=== PATIENT | male | born 1975 | race Caucasian/White ===

== ENCOUNTER 2016-09-30 11:54 | Emergency (ER) | payer SELFPAY ==
[~2016-09-30] VITALS: Ht 188 cm; Wt 91.7 kg
[~2016-09-30 11:54] MED LIST: PERC10TA27 PO; PRED50 PO; ROBA500T PO
[2016-09-30 11:58] VITALS: BP 116/75; PULSE 89; RESP 16; TEMP 97.8; O2SAT 96
[2016-09-30] MEDS ORDERED: IBUP-988 PO (12:09)
[2016-09-30] MEDS ORDERED: ROBA750T PO (12:37)
[2016-09-30] MEDS ORDERED: DICL50TA3 PO (12:37)
[2016-09-30] MEDS ORDERED: KETOROLAC TROMETHAMINE 60 MG/2 ML (IM) VIAL IM ONE (12:45)
[2016-09-30] MEDS ORDERED: ACETAMINOPHEN/HYDROcodone 325 MG/7.5 MG TAB PO ONE (12:45)
[2016-09-30] MEDS ORDERED: ORPHENADRINE INJ 60 MG/2 ML AMP IM ONE (12:45)
--- NOTE | 2016-09-30 12:47 | PD ---
HPI Chief Complaint: Back/ Neck Pain or Injury Time Seen by Provider: 12:25 Travel History International Travel<30 days: No Contact w/Intl Traveler<30days: No Traveled to known affect area: No History of Present Illness HPI Patient 41-year-old male with right lower back pain. He states yesterday he was getting out of his truck when he felt a popping sensation in the right lower back. He's had discomfort since that time which acutely worsened upon waking this morning. Pain is aching in nature but becomes sharp with movements. It radiates to the left side of the back sometimes as well but patient believes that is due to his impaired gait due to pain. No radiation into the buttocks or legs. He denies any bowel or bladder, saddle anesthesia, a paresthesias in his legs. Denies fever, history of trauma, back surgery or IVDA. He is use aspirin last evening with minimal relief. No attempts at palliation today. No positions of comfort. Worse with movement and touch. PFSH Past Medical History Medical History: Denies Significant Hx Diminished Hearing: No Musculoskeletal: Yes (right leg/knee chronic interm pain) Immunizations Current: Yes Tetanus Vaccination: < 5 Years Influenza Vaccination: No Past Surgical History Other Surgery: Yes (left elbow dislocation r/t injury) Social History Alcohol Use: No (denies) Tobacco Use: No (quit 08/2016) Substance Use: No Allergies-Medications (Allergen,Severity, Reaction): Coded Allergies: No Known Allergies (Verified , 09/30/16) Reported Meds & Prescriptions Reported Meds & Active Scripts Active Robaxin (Methocarbamol) 750 Mg Tab 750 Mg PO QID PRN 2 tabs QID for 2 days, then 1 tab QID thereafter Diclofenac Sodium DR (Diclofenac Sodium) 50 Mg Tabdr 50 Mg PO BID Reported Advil (Ibuprofen) 200 Mg Tab 400 Mg PO ONCE Review of Systems General / Constitutional: No: Fever Musculoskeletal: Positive: Other (see the history of present illness) Neurologic: No: Weakness, Focal Abnormalities, Paresthesia, Sensory Disturbance Physical Exam Narrative GENERAL: Well-developed and well-nourished adult male in no acute distress. SKIN: Warm and dry. Good turgor without tenting. HEAD: Normocephalic and atraumatic. EYES: PERRL bilaterally, 5mm. EOMI bilaterally. No injection or icterus present. No proptosis. Lids without edema or erythema. NECK: Supple, no midline tenderness, crepitus or step-offs. Trachea midline, no JVD. No cervical or facial lymphadenopathy. CARDIOVASCULAR: Regular rate and rhythm without murmurs, rubs, clicks or gallops. Dorsalis pedis and posterior tibial pulses 2+ bilaterally. No pedal edema. RESPIRATORY: Clear to auscultation bilaterally with symmetrical rise and fall, no distress or use of accessory muscles. GASTROINTESTINAL: Non-tender, non-distended. Normal bowel sounds all 4 quadrants. No masses or organomegaly present. MUSCULOSKELETAL: Antalgic gait. Exam of the patient's back and upper buttocks reveals no edema or discoloration. There is tenderness with palpation of the right parasacral spinous musculature and slightly on the left as well. The lumbar sacral midline tenderness, crepitus or step-offs. Reduced range of motion in back extension secondary to pain. Negative right straight leg raise. Extremities without clubbing, cyanosis, or edema. No obvious deformities. NEUROLOGIC: CN II-XII grossly intact. Awake and alert. Sensation intact L1-S2 bilaterally. Strength 5/5 in hip flexion, hip extension, knee flexion, knee extension, plantar flexion, dorsiflexion, and great toe flexion and extension bilaterally. Bilateral patellar and Achilles DTRs 2+. Downgoing Babinskis bilaterally. Normal speech. PSYCHIATRIC: Appropriate mood and affect; insight and judgment normal. Data Data Last Documented VS Vital Signs Date Time Temp Pulse Resp B/P Pulse Ox O2 Delivery O2 Flow Rate FiO2 09/30/16 11:58 97.8 89 16 116/75 96 Orders Ketorolac Inj (Toradol Inj) (09/30/16 12:45) Orphenadrine Inj (Norflex Inj) (09/30/16 12:45) Acetamin-Hydrocod 325-7.5 Mg ([place] 7.5 (09/30/16 12:45) MDM Medical Decision Making Medical Screen Exam Complete: Yes Emergency Medical Condition: Yes Differential Diagnosis Low back strain versus muscle spasm versus HNP versus sciatica versus SI dysfunction Narrative Course Patient is a 41-year-old male with a history and physical consistent with low back strain and muscle spasm. He has no "red flag "symptoms and is neurovascularly intact on exam. He is given Toradol and Norflex here as well as Lortab. Given prescription for diclofenac and Robaxin and recommend homecare measures.See discharge paperwork for further instructions. The plan was discussed with the patient who acknowledged their understanding and agreement. Reinforced the follow-up with primary care is critically important. Patient instructed on emergent conditions that should prompt return to ED. Diagnosis Primary Impression: Low back strain Qualified Code: S39.012A - Low back strain, initial encounter Patient Instructions: General Instructions, Low Back Strain (ED), Lower Back Exercises (ED), Narcotic given in the ED Departure Forms: Tests/Procedures, Work Release Enter return to work date: Oct 03, 2016 Additional Instructions: Rest for 24 hours, then gradually resume normal activity Avoid maneuvers or positions that aggravate the pain Avoid twisting/bending or lifting heavy items Take medications as prescribed Warm, moist heat applied to painful areas hourly as needed Try to massage and stretch affected muscles after applying heat to speed recovery Follow-up with PCP in 1-2 days Return to ED for any acute worsening of symptoms Med/Other Pt SpecificInfo: Prescription(s) given Scripts Methocarbamol (Robaxin)750 Mg [id number] Mg PO QID PRN (MUSCLE SPASM) #40 TAB 2 tabs QID for 2 days, then 1 tab QID thereafter Prov:Iris Dee MD 09/30/[address] 50 Mg Tabdr50 Mg PO BID #14 TAB Prov:Iris Dee MD 09/30/16 Disposition: 01 DISCHARGE HOME Condition: Stable Quirino Liu III Sep 30, 2016 12:47
[2016-09-30 13:33] VITALS: RESP 16
== END 2016-09-30 13:34 | disposition home or self-care (01) ==
LOC: PHEFT 11:54
DX: S39.012A Strain of muscle, fascia and tendon of lower back, initial encounter (principal); X50.9XXA Other and unspecified overexertion or strenuous movements or postures, initial encounter; Y93.89 Activity, other specified; Y92.9 Unspecified place or not applicable
CPT/HCPCS: 96372; 99283; J1885; J2360

== ENCOUNTER 2016-10-07 21:18 | Emergency (ER) | payer SELFPAY ==
[~2016-10-07] VITALS: Ht 188 cm; Wt 91.1 kg
[~2016-10-07 21:18] MED LIST changes: +DICL50TA3 PO; +IBUP-988 PO; -PERC10TA27 PO; -PRED50 PO; -ROBA500T PO; +ROBA750T PO
[2016-10-07 21:28] VITALS: BP 139/106; PULSE 77; RESP 20; TEMP 98; O2SAT 96
[2016-10-07] MEDS ORDERED: SODIUM CHLOR 0.9% 1000 ML INJ 1,000 ML IV ONE (22:17)
--- NOTE | 2016-10-07 22:22 | PD ---
HPI Chief Complaint: Flank/Kidney Pain Time Seen by Provider: 22:12 Travel History International Travel<30 days: No Contact w/Intl Traveler<30days: No Traveled to known affect area: No History of Present Illness HPI 41-year-old male presents to the emergency department for complaint of right flank pain radiating into the right groin. Patient had episode of nausea with vomiting earlier today. No prior history of injury or kidney stones. Patient denies any lower extremity numbness tingling or weakness no bladder or bowel dysfunction or saddle anesthesia. Patient reports she was seen approximately 5 days ago in the emergency department for same complaint at which time he was prescribed a muscle relaxant and nonsteroidal anti-inflammatory medication which patient states symptoms have not improved. Patient denies any chronic issues or previous back injury. No chronic medications or chronic illnesses per patient. Pain is reported as 10 over 10 in intensity. PFSH Past Medical History Narrative Medical Musculoskeletal complaints of dislocation nursing notes reviewed no tobacco use Medical History: Denies Significant Hx Diminished Hearing: No Musculoskeletal: Yes (right leg/knee chronic interm pain) Immunizations Current: Yes Tetanus Vaccination: > 5 Years Influenza Vaccination: No Past Surgical History Surgical History: No Previous Surgery Other Surgery: Yes (left elbow dislocation r/t injury) Social History Alcohol Use: No Tobacco Use: No Substance Use: No Allergies-Medications (Allergen,Severity, Reaction): Coded Allergies: No Known Allergies (Verified , 10/07/16) Reported Meds & Prescriptions Reported Meds & Active Scripts Active Prednisone 50 Mg Tab 50 Mg PO DAILY 4 Days Percocet (Oxycodone-Acetaminophen) 5-325 mg Tab 1 Tab PO Q6H PRN Review of Systems Except as stated in HPI: all other systems reviewed are Neg General / Constitutional: No: Fever HENT: No: Congestion Cardiovascular: No: Chest Pain or Discomfort Respiratory: No: Shortness of Breath Gastrointestinal: Positive: Nausea, Vomiting (x1), No: Abdominal Pain Genitourinary: Positive: Flank Pain, No: Dysuria, Hematuria Musculoskeletal: Positive: Myalgias, Arthralgias, Limited ROM, Pain, No: Weakness, Cramping, Edema Skin: No Rash Neurologic: No: Weakness, Paresthesia, Incontinence Psychiatric: No: Anxiety Hematologic/Lymphatic: No: Lymph Node Enlargement Physical Exam Narrative GENERAL: Well-developed well-nourished male in obvious discomfort SKIN: Warm and dry. HEAD: Normocephalic. EYES: No scleral icterus. No injection or drainage. NECK: Supple, trachea midline. No JVD or lymphadenopathy. CARDIOVASCULAR: Regular rate and rhythm without murmurs, gallops, or rubs. RESPIRATORY: Breath sounds equal bilaterally. No accessory muscle use. GASTROINTESTINAL: Abdomen soft, non-tender, nondistended. MUSCULOSKELETAL: No cyanosis, or edema. Negative straight leg raising; sensory and motor exam intact; DTRs 2+ and equal; no clonus BACK: Nontender without obvious deformity. Right-sided CVA tenderness. Data Data Last Documented VS Vital Signs Date Time Temp Pulse Resp B/P Pulse Ox O2 Delivery O2 Flow Rate FiO2 10/07/16 23:07 18 10/07/16 22:55 62 116/73 97 Room Air 10/07/16 21:28 98.0 Orders Complete Blood Count With Diff (10/07/16 22:17) Basic Metabolic Panel (Bmp) (10/07/16 22:17) Urinalysis - C+S If Indicated (10/07/16 22:17) Ct Abd/Pel W/O Iv Contrast (10/07/16 22:17) Ecg Monitoring (10/07/16 22:17) Iv Access Insert/Monitor (10/07/16 22:17) Ketorolac Inj (Toradol Inj) (10/07/16 22:30) Ondansetron Inj (Zofran Inj) (10/07/16 22:30) Sodium Chloride 0.9% Flush (Ns Flush) (10/07/16 22:30) Sodium Chlor 0.9% 1000 Ml Inj (Ns 1000 M (10/07/16 22:17) Morphine Inj (Morphine Inj) (10/07/16 22:30) Hydromorphone Pf Inj (Dilaudid Pf Inj) (10/07/16 23:30) Prednisone (Deltasone) (10/07/16 23:30) Labs Laboratory Tests Test 10/07/16 10/07/16 21:45 23:05 White Blood Count 11.7 TH/MM3 Red Blood Count 5.75 MIL/MM3 Hemoglobin 17.4 GM/DL Hematocrit 51.7 % Mean Corpuscular Volume 89.9 FL Mean Corpuscular Hemoglobin 30.3 PG Mean Corpuscular Hemoglobin 33.7 % Concent Red Cell Distribution Width 12.2 % Platelet Count 341 TH/MM3 Mean Platelet Volume 8.5 FL Neutrophils (%) (Auto) 56.6 % Lymphocytes (%) (Auto) 33.3 % Monocytes (%) (Auto) 6.6 % Eosinophils (%) (Auto) 2.4 % Basophils (%) (Auto) 1.1 % Neutrophils # (Auto) 6.6 TH/MM3 Lymphocytes # (Auto) 3.9 TH/MM3 Monocytes # (Auto) 0.8 TH/MM3 Eosinophils # (Auto) 0.3 TH/MM3 Basophils # (Auto) 0.1 TH/MM3 CBC Comment DIFF FINAL Differential Comment Sodium Level 141 MEQ/L Potassium Level 3.8 MEQ/L Chloride Level 106 MEQ/L Carbon Dioxide Level 26.5 MEQ/L Anion Gap 9 MEQ/L Blood Urea Nitrogen 16 MG/DL Creatinine 1.10 MG/DL Estimat Glomerular Filtration 75 ML/MIN Rate Random Glucose 101 MG/DL Calcium Level 8.8 MG/DL Urine Color YELLOW Urine Turbidity CLEAR Urine pH 6.5 Urine Specific [place] 1.014 Urine Protein NEG mg/dL Urine Glucose (UA) NEG mg/dL Urine Ketones NEG mg/dL Urine Occult Blood NEG Urine Nitrite NEG Urine Bilirubin NEG Urine Leukocyte Esterase NEG Urine RBC 0-2 /hpf Urine WBC 0-2 /hpf Urine Squamous Epithelial 0-5 /hpf Cells Urine Bacteria NONE /hpf Microscopic Urinalysis Comment CULT NOT INDICATED MDM Medical Decision Making Medical Screen Exam Complete: Yes Emergency Medical Condition: Yes Medical Record Reviewed: Yes Interpretation(s) cbc: grossly wnl metabolic panel: grossly wnl ua: wnl Last Impressions Abdomen/Pelvis CT 10/07/167 Signed Impressions: Service Date/Time: September 22:36 - CONCLUSION: Mildly enlarged liver, nonspecific. Otherwise normal noncontrast CT of the abdomen and pelvis. No renal or ureteral calculus or evidence of obstructive uropathy. Quirino Barahona MD Differential Diagnosis Renal colic pyelonephritis sacroiliitis sciatica; no exam findings for cauda equina or testicular torsion Narrative Course IV access obtained specimens collected and sent for resulting CT kidney stone protocol ordered along with administration of normal saline Zofran Toradol and morphine Diagnosis Primary Impression: Lumbar disc disease with radiculopathy Additional Impression: Medication refill Referrals: Primary Care Physician call for appointment Patient Instructions: Narcotic given in the ED Departure Forms: Tests/Procedures, Work Release Additional Instructions: apply moist heat take medications as prescribed; do not take non-steroidal anti-inflammatory medications while taking prednisone no work x 2 days rest on firm surface return to the ED as needed or for any concerns continue muscle relaxant as prescribed Med/Other Pt SpecificInfo: Prescription(s) given, Med Stopped (diclofenac) Scripts Methocarbamol (Robaxin)750 Mg [id number] Mg PO Q6HR #12 TAB Ref 0 Prov:Andreea Harrell MD 10/08/16 Prednisone 50 Mg Tab50 Mg PO DAILY 4 Days Ref 0 Prov:Andreea Harrell MD 10/07/16 Oxycodone-Acetaminophen (Percocet)5-325 mg Tab1 Tab PO Q6H PRN (PAIN) #12 TAB Ref 0 Prov:Andreea Harrell MD 10/07/16 Disposition: 01 DISCHARGE HOME Condition: Stable Andreea Harrell MD Oct 07, 2016 22:22
[2016-10-07] MEDS ORDERED: MORPHINE SULFATE 4 MG/ML INJ IV PUSH ONE (22:30)
[2016-10-07] MEDS ORDERED: KETOROLAC TROMETHAMINE 30 MG/ML (IVP) VIAL IVP ONE (22:30)
[2016-10-07] MEDS ORDERED: ONDANSETRON HCL 4 MG/2 ML VIAL IVP ONE (22:30)
[2016-10-07] MEDS ORDERED: SODIUM CHLORIDE 0.9% FLUSH 5 ML FLUSH IVF PRN (22:30)
[2016-10-07 22:34] LABS: AUTOMATED NEUTROPHIL # 6.6 TH/MM3 (1.8-7.7); BASOPHIL # 0.1 TH/MM3 (0-0.2); BASOPHIL % 1.1 % (0.0-2.0); EOSINOPHIL # 0.3 TH/MM3 (0-0.4); EOSINOPHIL % 2.4 % (0.0-4.0); HEMATOCRIT 51.7 % (39.0-51.0); HEMO FLAGS DIFF FINAL; LYMPH % 33.3 % (9.0-44.0); LYMPHOCYTE # 3.9 TH/MM3 (1.0-4.8); MEAN CELL VOLUME 89.9 FL (80.0-100.0); MEAN CORPUSCULAR HEMOGLOBIN 30.3 PG (27.0-34.0); MEAN CORPUSCULAR HGB CONC 33.7 % (32.0-36.0); MONO % 6.6 % (0.0-8.0); NEUT % 56.6 % (16.0-70.0); PLATELET COUNT 341 TH/MM3 (150-450); RED BLOOD COUNT 5.75 MIL/MM3 (4.50-5.90); RED CELL DISTRIBUTION WIDTH 12.2 % (11.6-17.2); WHITE BLOOD COUNT 11.7 TH/MM3 (4.0-11.0)
[2016-10-07 22:43] LABS: POTASSIUM 3.8 MEQ/L (3.5-5.1)
[2016-10-07 22:46] LABS: BICARBONATE 26.5 MEQ/L (21.0-32.0)
[2016-10-07 22:55] VITALS: BP 116/73; PULSE 62; RESP 18; O2SAT 97
--- NOTE | 2016-10-07 23:02 | RADHPO ---
EXAM DATE/TIME: 10/07/2016 22:36 [facility] COMPARISON: No previous studies available for comparison. INDICATIONS : Right flank pain. ORAL CONTRAST: No oral contrast ingested. RADIATION DOSE: 16.87 CTDIvol (mGy) MEDICAL HISTORY : None SURGICAL HISTORY : None. ENCOUNTER: Initial ACUITY: 1 week PAIN SCALE: 10/10 LOCATION: Right flank TECHNIQUE: Volumetric scanning of the abdomen and pelvis was performed. Using automated exposure control and ad justment of the mA and/or kV according to patient size, radiation dose was kept as low as reasonably achievable to obtain optimal diagnostic quality images. FINDINGS: LOWER LUNGS: The visualized lower lungs are clear. LIVER: The liver is mildly enlarged, approximately 19.3 cm craniocaudal. No focal hepatic lesion. CT appeara nce of the gallbladder is within normal limits. SPLEEN: Normal size without lesion. PANCREAS: Within normal limits. KIDNEYS: Normal in size and shape. There is no mass, stone, or hydronephrosis. ADRENAL GLANDS: Within normal limits. VASCULAR: There is no aortic aneurysm. BOWEL/MESENTERY: The stomach, small bowel, and colon demonstrate no acute abnormality. There is no free intraperitone al air or fluid. The appendix is well-visualized and appears normal. ABDOMINAL WALL: Within normal limits. RETROPERITONEUM: There is no lymphadenopathy. BLADDER: No wall thickening or mass. REPRODUCTIVE: Within normal limits. INGUINAL: There is no lymphadenopathy or hernia. MUSCULOSKELETAL: Within normal limits for patient age. CONCLUSION: Mildly enlarged liver, nonspecific. Otherwise normal noncontrast CT of the abdomen and pelvis. No mague al or ureteral calculus or evidence of obstructive uropathy. Quirino Barahona MD on October 07, 2016 at 22:59 Board Certified Radiologist. This report was verified electronically.
[2016-10-07 23:07] VITALS: RESP 18
[2016-10-07 23:19] LABS: BLOOD, URINE NEG (NEG); GLUCOSE,URINE NEG (NEG); KETONE, URINE NEG (NEG); NITRITE,URINE NEG (NEG); PH, URINE 6.5 (5.0-8.5)
[2016-10-07] MEDS ORDERED: PRED50 PO (23:24)
[2016-10-07] MEDS ORDERED: PERC5TAB12 PO (23:24)
[2016-10-07 23:25] LABS: RBC, URINE 0-2 /hpf (0-3); SQUAMOUS EPITHELIAL CELL URINE 0-5 /hpf (0-5); URINE COLOR YELLOW (YELLW/STRAW); WBC, URINE 0-2 /hpf (0-5)
[2016-10-07 23:26] LABS: COMMENT (UR) CULT NOT INDICATED; CULTURE IF INDICATED CULT NOT INDICATED
[2016-10-07] MEDS ORDERED: predniSONE 50 MG TAB PO ONE (23:30)
[2016-10-07] MEDS ORDERED: HYDROmorphone HCL PF 1 MG/ML VIAL IV PUSH ONE (23:30)
[2016-10-08] MEDS ORDERED: ROBA750T PO
== END 2016-10-08 00:16 | disposition home or self-care (01) ==
LOC: PHED 21:18
DX: M51.9 Unspecified thoracic, thoracolumbar and lumbosacral intervertebral disc disorder (principal); M54.16 Radiculopathy, lumbar region; Z76.0 Encounter for issue of repeat prescription; R11.2 Nausea with vomiting, unspecified
CPT/HCPCS: 74176; 80048; 81001; 85025; 96374; 96375; 99284; J1170; J1885; J2270; J2405; J7030; J7512

== ENCOUNTER 2018-02-18 17:01 | Emergency (ER) | payer BC ==
[~2018-02-18 17:01] MED LIST changes: -DICL50TA3 PO; -IBUP-988 PO; +PERC5TAB12 PO; +PRED50 PO
[2018-02-18 17:03] VITALS: BP 156/84; PULSE 88; RESP 20; TEMP 97.8; O2SAT 97
[2018-02-18] MEDS ORDERED: AMOX250C3 PO (17:14)
[2018-02-18] MEDS ORDERED: DICL75TA PO (17:14)
[2018-02-18] MEDS ORDERED: CLIN300C5 PO (17:19)
[2018-02-18] MEDS ORDERED: MAGICPED SWISH-SPIT (17:19)
--- NOTE | 2018-02-18 17:26 | PD ---
HPI Chief Complaint: Oral / Dental Pain or Problem Time Seen by Provider: 17:13 Travel History International Travel<30 days: No Contact w/Intl Traveler<30days: No Traveled to known affect area: No History of Present Illness HPI 42-year-old male presents emergency department for evaluation of tooth pain and left facial swelling that started Tuesday. Says that he went to the dentist and he removed the 'wrong tooth'. Says over the next 1-2 days, he developed increased pain and swelling so he returned to the dentist and was given PCN and Percocet for the pain. He states compliance with the medications. He is due to return Tuesday to see the dentist. He says that initially, his pain was located directly over the pulled tooth but this has worsened and he noticed increased swelling that has since extended into his left cheek and lip. He is concerned about a worsening infection. His pain is moderate in severity and radiates to the left orbit. Described as aching. Denies fevers or chills but says he has been sweating. Denies neck pain, drooling, or swelling. PFSH Past Medical History Diminished Hearing: No Musculoskeletal: Yes (right leg/knee chronic interm pain) Immunizations Current: Yes Past Surgical History Other Surgery: Yes (left elbow dislocation r/t injury) Social History Alcohol Use: No Tobacco Use: Yes (1PPD) Substance Use: No Allergies-Medications (Allergen,Severity, Reaction): Coded Allergies: No Known Allergies (Verified , 10/07/16) Reported Meds & Prescriptions Reported Meds & Active Scripts Active Magic Mouthwash Pediatric/Adult Liq (Lidocaine/Diphenhydr/Alum/Mg/Simeth) 60 Ml Susp 5 Ml SWISH-SPIT ACHS Each 5mL contains: Diphenydramine 4.5mg, Viscous Lidocaine 2% 10mg, Maalox Advanced Regular Strength 2.7ml Clindamycin (Clindamycin HCl) 300 Mg Cap 300 Mg PO Q6H 7 Days Percocet (Oxycodone-Acetaminophen) 5-325 mg Tab 1 Tab PO Q6H PRN Reported Diclofenac Sodium DR (Diclofenac Sodium) 75 Mg Tabdr 75 Mg PO BID Amoxicillin 250 Mg Cap 250 Mg PO TID Review of Systems Except as stated in HPI: all other systems reviewed are Neg Physical Exam Narrative GENERAL: Well-nourished, well-developed patient, in NAD SKIN: Focused skin assessment warm/dry. No rashes or lesions. mild edema compared to right cheek. mild TTP to maxillary cheek. no TTP to jawline. no fluctuance of gumline. HEAD: Normocephalic. Atraumatic. EYES: No scleral icterus. No injection or drainage. PERRLA, EOMI THROAT: No pharyngeal injection, exudates, or tonsillar hypertrophy. Airway is patent. NECK: Supple, trachea midline. No JVD or lymphadenopathy. No meningismus. CARDIOVASCULAR: Regular rate and rhythm without murmurs, gallops, or rubs. RESPIRATORY: Breath sounds equal bilaterally. No accessory muscle use. No wheezes, rales, or rhonchi MUSCULOSKELETAL: No cyanosis, or edema. BACK: Nontender without obvious deformity. No CVA tenderness. Data Data Last Documented VS Vital Signs Date Time Temp Pulse Resp B/P (MAP) Pulse Ox O2 Delivery O2 Flow Rate FiO2 02/18/18 17:03 97.8 88 20 156/84 (108) 97 Orders Orders Clindamycin Inj (Cleocin Inj) (02/18/18 17:30) Acetamin-Hydrocod 325-10 Mg ([place] 10-32 (02/18/18 17:30) MDM Medical Decision Making Medical Screen Exam Complete: Yes Emergency Medical Condition: Yes Differential Diagnosis Dental infection, tooth abscess, pulpitis, dry socket Narrative Course 42-year-old male presents emergency department for evaluation of tooth pain and left facial swelling that started Tuesday. Says that he went to the dentist and he removed the 'wrong tooth'. Says over the next 1-2 days, he developed increased pain and swelling so he returned to the dentist and was given PCN and Percocet for the pain. He states compliance with the medications. He is due to return Tuesday to see the dentist. He says that initially, his pain was located directly over the pulled tooth but this has worsened and he noticed increased swelling that has since extended into his left cheek and lip. He is concerned about a worsening infection. His pain is moderate in severity and radiates to the left orbit. Described as aching. Denies fevers or chills but says he has been sweating. Vital signs are stable. Physical exam findings consistent with developing cellulitis of the left face. I suspect the patient also has a dry socket. Patient smokes which likely contributed to his condition. Note the patient had been taking amoxicillin and percocet for pain without improvement. Pt has a history of rheumatoid arthritis so there is a concern for his immune status. Clindamycin 600mg IM and Percocet 10-325mg administered in the ED. He will be discharged with clindamycin and magic mouthwash. He should follow up with his dentist as planned for Tuesday. Diagnosis Primary Impression: Dental infection Referrals: Dentist Primary Care Physician Patient Instructions: Cavity Preventive (For the teeth or gums), Dental Abscess (ED), General Instructions Departure Forms: Tests/Procedures, Work Release Enter return to work date: Feb 21, 2018 Additional Instructions: Stop the amoxicillin. Start clindamycin tomorrow. You received your first dose today. Use the Magic mouthwash for symptom relief. Follow-up with a dentist as discussed next Tuesday. I highly recommend you stop smoking to reduce complications associated with your condition. Scripts Tkfrbwyfvtoamii-Cilumbyhb-Rlv-Alum-Simeth Liq (Magic Mouthwash Pediatric/Adult Liq) 60 Ml Susp 5 ML SWISH-SPIT ACHS for Mouth sores, #60 ML 0 Refills Each 5mL contains: Diphenydramine 4.5mg, Viscous Lidocaine 2% 10mg, Maalox Advanced Regular Strength 2.7ml Prov: Leland Wright MD 02/18/18 Clindamycin (Clindamycin) 300 Mg Cap 300 MG PO Q6H for Infection for 7 Days, #28 CAP 0 Refills Prov: Leland Wright MD 02/18/18 Disposition: 01 DISCHARGE HOME Condition: Stable Marii Daily Feb 18, 2018 17:26
[2018-02-18] MEDS ORDERED: CLINDAMYCIN PHOS 600 MG/4 ML VIAL IM ONE (17:30)
[2018-02-18] MEDS ORDERED: ACETAMINOPHEN/HYDROcodone 325 MG/10 MG TAB PO ONE (17:30)
== END 2018-02-18 18:06 | disposition home or self-care (01) ==
LOC: PHEFT 17:01
DX: K04.7 Periapical abscess without sinus (principal); F17.200 Nicotine dependence, unspecified, uncomplicated; M06.9 Rheumatoid arthritis, unspecified
CPT/HCPCS: 96372

== ENCOUNTER 2018-07-05 05:09 | Inpatient (IN) ==
[2018-07-05] MEDS ORDERED: Bupivacaine Liposomal PF 1.3% Inj 20 ML Vial ONE (05:15)
[2018-07-05] MEDS ORDERED: Metoprolol Tartrate 25 MG Tablet PO ONE (05:30)
[2018-07-05] MEDS ORDERED: Chlorhexidine Gluconate 2% 1 Pack (2 Cloths) TOPICAL ONE (05:30)
[2018-07-05] MEDS ORDERED: Chlorhexidine 4% Topical 120 APPLIC/120 ML Bottle TOPICAL SCH (05:30)
[2018-07-05] MEDS ORDERED: Vancomycin Inj 1,000 MG in Sodium Chlor 0.9% Inj 250 ML IV.SIG SCH (06:00)
[2018-07-05] MEDS ORDERED: ceFAZolin 2 GM Premix Inj 2 GM/50 ML PIGGYBACK IV.SIG SCH (06:00)
[2018-07-05] MEDS ORDERED: Sodium Chlor 0.9% Inj 500 ML IV.SIG SCH (06:00)
[2018-07-05] MEDS ORDERED: Dexamethasone Inj 20 MG/5 ML Vial IV.PUSH SCH (06:00)
[2018-07-05] MEDS ORDERED: Neostigmine Inj 5 MG/5 ML Syringe IV.PUSH ONE (06:39)
[2018-07-05] MEDS ORDERED: Normosol-R pH 7.4 Inj 1,000 ML IV.CONT ONE (06:39)
[2018-07-05] MEDS ORDERED: Lidocaine PF 1% Inj 5 ML Syringe OTHER ONE (06:39)
[2018-07-05] MEDS ORDERED: Glycopyrrolate Inj 1 MG/5 ML Syringe IV.PUSH ONE (06:39)
[2018-07-05] MEDS ORDERED: Sodium Chlor 0.9% Inj 40 ML, Bupivacaine Liposo PF 1.3% Inj 20 ML P-ARTICULR SCH ×2 (07:00)
[2018-07-05] MEDS ORDERED: Tranexamic Acid Inj 1,000 MG in Sodium Chlor 0.9% Inj 100 ML IV.SIG SCH (07:00)
--- NOTE | 2018-07-05 07:15 | P.DCO ---
- Physical Therapy Physical Therapy: Gait training, Transfer training, bed to chair Hip: Total hip Right Lower Extremity Weight Bearing: Weight bearing as tolerated Right Lower Extremity Range of Motion: Active ROM - Nursing Nursing: Fang emjia Dressing changes: Do not change dressing Additional instructions: First dressing change in the office - Certification Need for Home Health services: I have seen patient Quirino Last JR on 07/05/18. My clinical findings support the need for the requested home health care services because: Need for Home Health Services: Limited ability to care for self, High risk of falls Homebound Certification: I certify that my clinical findings support that this patient is homebound because: Homebound Certification: Post-op weakness, Unsteady gait/balance
[2018-07-05] MEDS ORDERED: Bisacodyl 10 MG Supp RECTAL PRN (08:47)
[2018-07-05] MEDS ORDERED: Zolpidem Tartrate 5 MG Tablet PO PRN (08:47)
[2018-07-05] MEDS ORDERED: Aluminum/Magnesium/Simethacone Susp 30 ML UDC PO PRN (08:47)
[2018-07-05] MEDS ORDERED: Post-op Orders (for Pharmacy) OTHER STA (08:47)
--- NOTE | 2018-07-05 08:51 | P.OP ---
- Preoperative Diagnosis (1) Osteoarthritis of right hip - Postoperative Diagnosis (1) Osteoarthritis of right hip Date of procedure: 07/05/18 Procedure: Right total hip arthroplasty Anesthesia: GETA Surgeon: Omid Jeffery MD Silk Screen Frame Assembler: KIM Estrada The surgical procedure was assisted by my Advanced Registered Nurse Practitioner. My RESTAURANT HOURLY MANAGER presence was necessary throughout this case for the manipulation and positioning of the surgical extremity. My RESTAURANT HOURLY MANAGER was assisting me throughout the duration of this procedure. The skill set of an Advance Registered Nurse Practitioner was medically necessary to complete this procedure. During the surgical case, the surgical consultant was working at the back table and the Advance Registered Nurse Practitioner was directly assisting me. Operation and Findings: IMPLANT DESCRIPTION: 1. [place] Gription Cup, acetabular size 58. 2. [place] AltrX polyethylene, neutral. 4. [place]ail femoral stem size 16, with collar, standard offset. 5. Femoral head/neck ceramic, 36, +8.5. ESTIMATED BLOOD LOSS: 250 cc. JUSTIFICATION FOR PROCEDURE: The patient has end-stage osteoarthritis to the hip. There is an attached conservative measures pathway form in the chart that describes the nonoperative measures that were undertaken prior to consideration of surgical management. The patient understood the risks and benefits of surgical management. See my office notes for further details. PROCEDURE: The patient was brought back to the operative theatre. Adequate anesthesia was obtained. The patient received intravenous vancomycin and Ancef. The patient was carefully placed on the operative table. The lower extremity was prepped and draped in the usual sterile fashion. Fluoroscopic images were obtained. We made a standard anterior incision over the hip. We dissected through the TFL fascia, exposing the anterior capsule. Arthrotomy was performed in a T-shaped fashion. The capsule was tagged with a #2 FiberWire. End-stage arthritis was identified. Osteotomy was performed through the femoral neck exposing the acetabulum. Remnants of the labrum were resected and osteophytes were removed. We sequentially reamed the acetabulum. We trialed the hip and placed the final cup into position. This was done under fluoroscopic guidance to obtain the appropriate inclination and anteversion. A manhole cover was placed into the acetabular component. We then placed the final polyethylene into position and confirmed that it was well seated. Capsular attachments on the calcar and the inner aspect of the greater trochanter were resected. On the proximal aspect of the femur we used a rongeur , box osteotome, canal finder, sequential broaches and lateralizing rasp. We calcar planed the proximal femur. Then thoroughly irrigated the wound. We trialed the hip with the appropriate size stem. We were between a size 16 and 18 stem. We felt that the 16 was a little undersized as far as the shaft was concerned but the 18 was oversized as far as the proximal body was concerned and we could not fit and 18 proximally. Therefore we went with the 16. We ended up burying the stem a little further and decided to use a collar to increase stability. We placed the final stem in to position and trialed again. The hip was stable while it was externally rotated 70 degrees when the leg was lowered to the floor. We felt that there may have been a little bit of extra length on the right side compared to the left side since the left side did have severe osteoarthritis as well. This returned the hip to its normal anatomic position on the right side. The final head was applied, and final fluoroscopic images were obtained. The wound was thoroughly irrigated again. Interarticular injection of liposomal bupivacaine was given. The capsule was closed with #2 FiberWire and #1 Vicryl. The deep fascia was closed with a #2 Stratafix, followed by 2-0 Vicryl in the skin and Dermabond dressing. Postop plan is to weight-bear as tolerated. DVT prophylaxis will be performed with SCDs, UCHE lopez, early mobilization, and Lovenox followed by aspirin.
[2018-07-05] MEDS ORDERED: *Meperidine Inj 25 MG/ML Vial PERIprocedural Use ONLY ONE (09:27)
[2018-07-05] MEDS ORDERED: *morphine SULFATE 8 MG/ML PERIprocedure ONLY ONE ×2 (09:28→09:45)
[2018-07-05] MEDS ORDERED: fentaNYL Citrate Inj 100 MCG/2 ML Ampul ONE (09:30)
[2018-07-05] MEDS ORDERED: SODIUM CHLOR 0.9% IV.SIG SCH (10:00)
[2018-07-05] MEDS ORDERED: HYDROmorphone PF Inj 2 MG/ML Vial ONE ×3 (10:00→10:47)
[2018-07-05] MEDS ORDERED: TRANEXAMIC ACID IV.SIG SCH (10:00)
[2018-07-05] MEDS: Sod Chloride 0.9% Inj 1,000 ML IV.CONT SCH ×2 (10:07→22:48)
--- NOTE | 2018-07-05 10:15 | XR ---
EXAM DATE: 07/05/2018 8:47 AM EDT AGE/SEX: 42 years / Male INDICATIONS: Post op right hip surgery. CLINICAL DATA: This is the patient's initial encounter. Patient reports that signs and symptoms have been present for 1 day and indicates a pain score of Nonresponsive. MEDICAL/SURGICAL HISTORY: Non-responsive. Abdominal aortic aneurysm repair. COMPARISON: No prior exams available for comparison. FINDINGS: The patient is status post a total hip arthroplasty. Prosthesis is well-seated. Alignment is anatomic . A fracture is not appreciated. CONCLUSION: Anatomic alignment. Santy Choudhary MD FACR Electronically signed by: Santy Choudhary MD 07/05/2018 10:13 AM EDT
--- NOTE | 2018-07-05 11:33 | XR ---
EXAM DATE: 07/05/2018 12:00 AM EDT AGE/SEX: 42 years / Male INDICATIONS: Right total hip replacement. CLINICAL DATA: This is the patient's initial encounter. Patient reports that signs and symptoms have been present for 1 day and indicates a pain score of Nonresponsive. MEDICAL/SURGICAL HISTORY: Non-responsive. Non-responsive. COMPARISON: No prior exams available for comparison. FINDINGS: The patient is status post a total hip arthroplasty. Prosthesis is well-seated. Alignment is anatomic . A fracture is not appreciated. Very tip of prosthesis is not visualized in the femoral component. CONCLUSION: Anatomic alignment. Santy Choudhary MD FACR Electronically signed by: Santy Choudhary MD 07/05/2018 11:32 AM EDT
[2018-07-05] MEDS: Senna/Docusate Sodium 8.6/50 MG Tablet PO SCH ×2 (11:50→20:55)
[2018-07-05] MEDS: Multivitamin/Minerals Therapeutic Tablet PO SCH ×2 (11:50→20:55)
[2018-07-05] MEDS: Morphine Sulfate Inj 2 MG/ML Vial IV.PUSH PRN ×2 (16:02→20:55)
[2018-07-06] MEDS: Morphine Sulfate Inj 2 MG/ML Vial IV.PUSH PRN (03:02)
--- NOTE | 2018-07-06 07:12 | P.PNOP ---
Subjective Interval history: The patient is out of bed in chair. The patient reports some mild soreness to the right hip but states the arthritic pain he had previously is no longer present. Physical Exam Vital signs: Vital Signs 07/05/18 09:24 07/05/18 09:30 07/05/18 09:45 Temperature 98.6 F Pulse Rate 76 75 87 Respiratory Rate 16 15 20 Blood Pressure 140/75 149/77 H 144/72 H Pulse Oximetry 97 96 96 07/05/18 10:00 07/05/18 10:15 07/05/18 10:30 Temperature 98.4 F Pulse Rate 80 87 92 H Respiratory Rate 14 12 12 Blood Pressure 125/66 127/74 125/74 Pulse Oximetry 98 97 96 07/05/18 12:00 07/05/18 16:00 07/05/18 20:49 Temperature 97.2 F L 98.2 F 97.5 F L Pulse Rate 94 H 75 89 Respiratory Rate 18 18 18 Blood Pressure 125/70 118/65 141/72 H Pulse Oximetry 94 L 97 96 07/05/18 23:00 07/06/18 04:01 Temperature 98.5 F 97.5 F L Pulse Rate 82 85 Respiratory Rate 18 18 Blood Pressure 134/72 138/73 Pulse Oximetry 97 98 Intake & Output 07/05/18 07/06/18 07/06/18 18:59 06:59 18:59 Intake Total 2659.99 / 2659.99 1710 / 1710 Output Total 250 / 250 Balance 2409.99 / 2409.99 1710 / 1710 Weight 99.79 kg 99.79 kg Intake: IV 1619.99 / 1619.99 990 / 990 NS Inj 1,000 ML @ 80 mls/hr IV. 790 / 790 CONT .[id number] [facility] Rx#:[id number] LR 1000 mL Inj 1,000 ML @ 30 1000 / 1000 mls/hr IV.SIG .Q24H [facility] Rx#: [id number] Cyklokapron Inj 999 MG In NS 219.99 / 219.99 Inj 100 ML @ 200 mls/hr IV.SIG ONCE [facility] Rx#:[id number] Vancomycin Inj 1,000 MG In NS 250 / 250 Inj 250 ML @ 250 mls/hr IV.SIG DIESEL ENGINE FITTER [facility] Rx#:[id number] Ancef 2 GM Premix Inj 2 gm In 50 / 50 50 ml @ 100 mls/hr IV.SIG DIESEL ENGINE FITTER [facility] Rx#:[id number] Ancef Inj 1,000 MG In NS Inj 100 / 100 200 / 200 100 ML @ 200 mls/hr IV.SIG Q6H [facility] Rx#:[id number] Oral 840 / 840 720 / 720 Anesthesia Amount 200 / 200 Output: Estimated Blood Loss 250 / 250 Other: # Voids 3 6 Date of Last Bowel Movement 07/05/18 07/05/18 # Bowel Movements 0 0 Narrative: The patient's dressing is clean, dry, and intact. EHL/TA/G are intact. 2+ pedal pulse. Mild ecchymosis to the right hip. The patient's calf is soft and nontender. Sensation is intact to light touch distally. Results - Labs CBC & Chem 7: 07/06/18 06:33 Laboratory Results - last 24 hr 07/05/18 06:00 Blood Type B Positive Blood Type Recheck Required Antibody Screen Negative - Imaging Impressions Hip X-Ray 07/05/18 00:00 CONCLUSION: Anatomic alignment. Santy Choudhary MD FACR Hip X-Ray 07/05/18 08:47 CONCLUSION: Anatomic alignment. Santy Choudhary MD FACR - Procedures Right total hip arthroplasty Assessment and Plan - Problem List (1) Status post total hip replacement, right Code(s): Z96.641 - Presence of right artificial hip joint Status: Acute (2) Osteoarthritis of right hip Code(s): M16.11 - Unilateral primary osteoarthritis, right hip Status: Acute - Assessment and Plan POD #1: [Right] total hip arthroplasty 1. Weightbearing as tolerated on [right] lower extremity. 2. Lovenox followed by aspirin for DVT prophylaxis. 3. Ice as needed for swelling. 4. Stable per ortho for discharge to home health today following his class. 5. The patient will follow up with Dr. Jeffery and/or KIM Foss as previously scheduled.
[2018-07-06 07:15] LABS: Hemoglobin 14.6 gm/dL (13.0-17.0)
--- NOTE | 2018-07-06 07:18 | P.DS ---
Date of admission: 07/05/18 05:09 Primary care physician: Destiney Deng MD Attending physician on discharge: Omid Jeffery Anticipated date of discharge: 07/06/18 Brief History from admission: The patient was admitted to the hospital for severe osteoarthritis of the right hip to have a right total hip arthroplasty. DS: Diagnosis - Discharge Diagnosis (1) Status post total hip replacement, right Status: Acute (2) Osteoarthritis of right hip Status: Acute DS: Summary Hospital Course: The patient was admitted to the hospital for severe osteoarthritis of the [right ] hip to have a [right] total hip arthroplasty. The patient's surgery went well with no complication. The patient is on a [regular] diet. The patient's DVT prophylaxis includes use of [Lovenox followed by aspirin]. The patient is weightbearing as tolerated. The patient was discharged [home with home health] and will follow up in the office with Dr. Jeffery and/or KIM Foss as previously scheduled. - Time Spent with Patient Total time spent providing and/or coordinating discharge services: Greater than 30 minutes - Quality: VTE Deep Vein Thrombosis/Pulmonary Embolism Present on Admission: No Exam Vital signs: Vital Signs 07/05/18 09:24 07/05/18 09:30 07/05/18 09:45 Temperature 98.6 F Pulse Rate 76 75 87 Respiratory Rate 16 15 20 Blood Pressure 140/75 149/77 H 144/72 H Pulse Oximetry 97 96 96 07/05/18 10:00 07/05/18 10:15 07/05/18 10:30 Temperature 98.4 F Pulse Rate 80 87 92 H Respiratory Rate 14 12 12 Blood Pressure 125/66 127/74 125/74 Pulse Oximetry 98 97 96 07/05/18 12:00 07/05/18 16:00 07/05/18 20:49 Temperature 97.2 F L 98.2 F 97.5 F L Pulse Rate 94 H 75 89 Respiratory Rate 18 18 18 Blood Pressure 125/70 118/65 141/72 H Pulse Oximetry 94 L 97 96 07/05/18 23:00 07/06/18 04:01 Temperature 98.5 F 97.5 F L Pulse Rate 82 85 Respiratory Rate 18 18 Blood Pressure 134/72 138/73 Pulse Oximetry 97 98 Intake & Output 10/17/18 10/18/18 10/18/18 18:59 06:59 18:59 Intake Total 2659.99 / 2659.99 1710 / 1710 Output Total 250 / 250 Balance 2409.99 / 2409.99 1710 / 1710 Weight 99.79 kg 99.79 kg Intake: IV 1619.99 / 1619.99 990 / 990 NS Inj 1,000 ML @ 80 mls/hr IV. 790 / 790 CONT .[id number] [facility] Rx#:[id number] LR 1000 mL Inj 1,000 ML @ 30 1000 / 1000 mls/hr IV.SIG .Q24H [facility] Rx#: [id number] Cyklokapron Inj 999 MG In NS 219.99 / 219.99 Inj 100 ML @ 200 mls/hr IV.SIG ONCE [facility] Rx#:[id number] Vancomycin Inj 1,000 MG In NS 250 / 250 Inj 250 ML @ 250 mls/hr IV.SIG ELECTRICIAN HELPER AUTOMOTIVE [facility] Rx#:[id number] Ancef 2 GM Premix Inj 2 gm In 50 / 50 50 ml @ 100 mls/hr IV.SIG ELECTRICIAN HELPER AUTOMOTIVE [facility] Rx#:[id number] Ancef Inj 1,000 MG In NS Inj 100 / 100 200 / 200 100 ML @ 200 mls/hr IV.SIG Q6H [facility] Rx#:[id number] Oral 840 / 840 720 / 720 Anesthesia Amount 200 / 200 Output: Estimated Blood Loss 250 / 250 Other: # Voids 3 6 Date of Last Bowel Movement 07/05/18 07/05/18 # Bowel Movements 0 0 Narrative: The patient's dressing is clean, dry, and intact. EHL/TA/G are intact. 2+ pedal pulse. Mild ecchymosis to the right hip. The patient's calf is soft and nontender. Sensation is intact to light touch distally. Results Procedures completed during hospitalization: Right total hip arthroplasty Labs on day of discharge: Labs from last 24 hours 07/06/18 06:33 Hgb 14.6 Hct 42.0 - Impressions ITS Impressions Hip X-Ray 07/05/18 08:47 CONCLUSION: Anatomic alignment. Santy Choudhary MD FACR Discharge Plan - Discharge Disposition Patient Disposition: /Home Health Service - Discharge Condition Condition: Stable - Discharge Order Discharge Orders: Discharge Order (Routine); Ordered 07/05/18 Ordered By: Sam Sanchez - Discharge Details Anticipated Discharge Date: 07/06/18 - Physicians Team Primary Care Provider: Destiney Deng Attending Provider: Omid Jeffery - Rxs /Orders / Referrals /Forms Prescriptions: Discontinued diclofenac sodium 75 mg Tablet,Delayed Release (Dr/Ec) 75 mg PO BID Ambulatory Orders / Order Sets / DME: Adjustable Commode 3-in-1 (1 each) (Routine) Location: Determined by Patient Ordered By: Sam Sanchez Walker With Front Wheels (1 each) (Routine) Location: Determined by Patient Ordered By: Sam Sanchez Referrals: Omid Jeffery MD [Physician] - See Instructions (f/u in the office as previously scheduled with Dr. Jeffery or Joaquin Sanchez, CHILD PSYCHOLOGY TEACHER) Destiney Deng MD [Primary Care Provider] - See Instructions
[2018-07-06] MEDS ORDERED: Dexamethasone Inj 20 MG/5 ML Vial IV.PUSH ONE (08:00)
[2018-07-06] MEDS: Senna/Docusate Sodium 8.6/50 MG Tablet PO SCH (08:27)
[2018-07-06] MEDS: Multivitamin/Minerals Therapeutic Tablet PO SCH (08:27)
[2018-07-06] MEDS ORDERED: Enoxaparin Inj 40 MG/0.4 ML Syringe SQ SCH (09:00)
[2018-07-06] MEDS: Sod Chloride 0.9% Inj 1,000 ML IV.CONT SCH (12:49)
[2018-07-06 14:23] VITALS: BP 133/76; PULSE 74; RESP 18; TEMP 97.3; O2SAT 97
== END 2018-07-06 14:53 | disposition home health service (06) ==
LOC: HSDI 05:09 → N06 11:17
PROVIDERS: ADMIT Orthopaedic Surgery; ATTEND Orthopaedic Surgery

== ENCOUNTER 2018-10-04 05:13 | Inpatient (IN) ==
[2018-10-04] MEDS ORDERED: Dexamethasone Inj 20 MG/5 ML Vial IV.PUSH PRN (05:40)
[2018-10-04] MEDS ORDERED: Sodium Chlor 0.9% Inj 40 ML, Bupivacaine Liposo PF 1.3% Inj 20 ML P-ARTICULR ONE ×2 (05:41)
[2018-10-04] MEDS ORDERED: Chlorhexidine 4% Topical 120 APPLIC/120 ML Bottle TOPICAL SCH (05:45)
[2018-10-04] MEDS ORDERED: Metoprolol Tartrate 25 MG Tablet PO ONE (05:56)
[2018-10-04] MEDS ORDERED: Chlorhexidine Gluconate 2% 1 Pack (2 Cloths) TOPICAL ONE (05:56)
[2018-10-04] MEDS ORDERED: SODIUM CHLOR 0.9% IV.SIG SCH (06:00)
[2018-10-04] MEDS ORDERED: TRANEXAMIC ACID IV.SIG SCH (06:00)
[2018-10-04] MEDS ORDERED: Sodium Chlor 0.9% Inj 40 ML, Bupivacaine Liposo PF 1.3% Inj 20 ML P-ARTICULR SCH ×2 (06:00)
[2018-10-04] MEDS ORDERED: ceFAZolin 2 GM Premix Inj 2 GM/50 ML PIGGYBACK IV.SIG SCH (06:00)
[2018-10-04] MEDS ORDERED: Sodium Chlor 0.9% Inj 500 ML IV.SIG SCH (06:00)
[2018-10-04] MEDS ORDERED: Vancomycin Inj 1,000 MG in Sodium Chlor 0.9% Inj 250 ML IV.SIG SCH (06:00)
[2018-10-04] MEDS ORDERED: Bisacodyl 10 MG Supp RECTAL PRN (08:25)
[2018-10-04] MEDS ORDERED: Morphine Inj 4 MG/ML Vial IV.PUSH PRN (08:25)
[2018-10-04] MEDS ORDERED: Aluminum/Magnesium/Simethacone Susp 30 ML UDC PO PRN (08:25)
[2018-10-04] MEDS ORDERED: Zolpidem Tartrate 5 MG Tablet PO PRN (08:25)
[2018-10-04] MEDS ORDERED: Post-op Orders (for Pharmacy) OTHER STA (08:25)
--- NOTE | 2018-10-04 08:29 | P.OP ---
- Preoperative Diagnosis (1) Osteoarthritis of left hip - Postoperative Diagnosis (1) Osteoarthritis of left hip Date of procedure: 10/04/18 Procedure: Left total hip arthroplasty Anesthesia: GETA Surgeon: Omid Jeffery MD Email Marketing Processor: KIM Estrada The surgical procedure was assisted by my Advanced Registered Nurse Practitioner. My VP OF PRODUCT presence was necessary throughout this case for the manipulation and positioning of the surgical extremity. My VP OF PRODUCT was assisting me throughout the duration of this procedure. The skill set of an Advance Registered Nurse Practitioner was medically necessary to complete this procedure. During the surgical case, the surgical elastic knitter was working at the back table and the Advance Registered Nurse Practitioner was directly assisting me. Operation and Findings: IMPLANT DESCRIPTION ([employer]): 1. [place] Gription Cup, acetabular size 58. 2. [place] AltrX polyethylene, neutral. 4. [place] femoral stem size 16, collar, standard offset. 5. Femoral head/neck ceramic, 36, +5. ESTIMATED BLOOD LOSS: 300 cc. JUSTIFICATION FOR PROCEDURE: The patient has end-stage osteoarthritis to the hip. There is an attached conservative measures pathway form in the chart that describes the nonoperative measures that were undertaken prior to consideration of surgical management. The patient understood the risks and benefits of surgical management. See my office notes for further details. PROCEDURE: The patient was brought back to the operative theatre. Adequate anesthesia was obtained. The patient received intravenous vancomycin and Ancef. The patient was carefully placed on the operative table. The lower extremity was prepped and draped in the usual sterile fashion. Fluoroscopic images were obtained. We made a standard anterior incision over the hip. We dissected through the TFL fascia, exposing the anterior capsule. Arthrotomy was performed in a T-shaped fashion. The capsule was tagged with a #2 FiberWire. End-stage arthritis was identified. Osteotomy was performed through the femoral neck exposing the acetabulum. Remnants of the labrum were resected and osteophytes were removed. We sequentially reamed the acetabulum. We trialed the hip and placed the final cup into position. This was done under fluoroscopic guidance to obtain the appropriate inclination and anteversion. A manhole cover was placed into the acetabular component. We then placed the final polyethylene into position and confirmed that it was well seated. Capsular attachments on the calcar and the inner aspect of the greater trochanter were resected. On the proximal aspect of the femur we used a rongeur , box osteotome, canal finder, sequential broaches and lateralizing rasp. We calcar planed the proximal femur. Then thoroughly irrigated the wound. We trialed the hip with the appropriate size stem. We placed the final stem in to position and trialed again. The hip was stable while it was externally rotated 70 degrees when the leg was lowered to the floor. The final head was applied, and final fluoroscopic images were obtained. The wound was thoroughly irrigated again. Interarticular injection of liposomal bupivacaine was given. The capsule was closed with #2 FiberWire and #1 Vicryl. The deep fascia was closed with a #2 Stratafix, followed by 2-0 Vicryl in the skin and Dermabond dressing. Postop plan is to weight-bear as tolerated. DVT prophylaxis will be performed with SCDs, UCHE hose, early mobilization, and aspirin.
--- NOTE | 2018-10-04 08:55 | XR ---
EXAM DATE: 10/04/2018 8:42 AM EST AGE/SEX: 43 years / Male INDICATIONS: Left anterior hip replacement done in operating room. CLINICAL DATA: This is the patient's initial encounter. Patient reports that signs and symptoms have been present for 1 day and indicates a pain score of Nonresponsive. MEDICAL/SURGICAL HISTORY: Non-responsive. Non-responsive. COMPARISON: No prior exams available for comparison. FINDINGS: Total hip arthroplasty is in place. The femoral and acetabular components appear intact. There are no signs of loosening or fracture. CONCLUSION: Intact total hip prosthesis for technique. Electronically signed by: Lily Beltran MD Board Certified Radiologist 10/04/2018 8:54 AM EST
[2018-10-04] MEDS ORDERED: fentaNYL Citrate Inj 100 MCG/2 ML Ampul ONE (08:56)
[2018-10-04] MEDS ORDERED: *Meperidine Inj 25 MG/ML Vial PERIprocedural Use ONLY ONE (09:02)
[2018-10-04] MEDS ORDERED: *morphine SULFATE 4 MG/ML PERIprocedure ONLY ONE (09:33)
[2018-10-04] MEDS ORDERED: *morphine SULFATE 10 MG/ML PERIprocedure ONLY ONE ×2 (09:44→11:38)
[2018-10-04] MEDS: Multivitamin/Minerals Therapeutic Tablet PO SCH ×2 (09:49→20:35)
[2018-10-04] MEDS: Sod Chloride 0.9% Inj 1,000 ML IV.CONT SCH ×2 (09:49→21:00)
[2018-10-04] MEDS: Senna/Docusate Sodium 8.6/50 MG Tablet PO SCH (09:50)
[2018-10-04] MEDS ORDERED: SODIUM CHLOR 0.9% IV.SIG ONE (10:00)
[2018-10-04] MEDS ORDERED: TRANEXAMIC ACID IV.SIG ONE (10:00)
[2018-10-04] MEDS ORDERED: HYDROmorphone PF Inj 0.5 MG/0.5 ML Syringe ONE (10:03)
[2018-10-04] MEDS ORDERED: *HYDROmorphone PF Inj 1 MG/ML Ampul PERIprocedural Use ONLY ONE (10:40)
--- NOTE | 2018-10-04 10:47 | XR ---
EXAM DATE: 10/04/2018 8:39 AM EST AGE/SEX: 43 years / Male INDICATIONS: Post op left hip replacement. CLINICAL DATA: This is the patient's subsequent encounter. Patient reports that signs and symptoms h ave been present for 1 day and indicates a pain score of Nonresponsive. MEDICAL/SURGICAL HISTORY: Non-responsive. Non-responsive. COMPARISON: [facility], HIP RIGHT W AP PELVIS 2V, 07/05/2018. . FINDINGS: Interval left total hip arthroplasty. Right hip arthroplasty is present. There is a small amount of s ubcutaneous air about the left hip. Femoral and acetabular components appear well seated. CONCLUSION: Interval left hip arthroplasty. Electronically signed by: Luke Mar MD Board Certified Radiologist 10/04/2018 10:45 AM EST
[2018-10-04] MEDS: ceFAZolin Inj 1 GM in Sodium Chlor 0.9% Inj 100 ML IV.SIG SCH ×2 (13:15→19:05)
--- NOTE | 2018-10-04 14:44 | P.DCO ---
- Physical Therapy Physical Therapy: Gait training, Transfer training, bed to chair Hip: Total hip Left Lower Extremity Weight Bearing: Weight bearing as tolerated Left Lower Extremity Range of Motion: Active ROM - Nursing Dressing changes: Do not change dressing Additional instructions: First dressing change in the office. - Case Management Consult Case Management Consult-Home Health: Yes - Certification Need for Home Health services: I have seen patient Quirino Last JR on 10/04/18. My clinical findings support the need for the requested home health care services because: Need for Home Health Services: Limited ability to care for self, High risk of falls Homebound Certification: I certify that my clinical findings support that this patient is homebound because: Homebound Certification: Post-op weakness, Unsteady gait/balance
[2018-10-05] MEDS: ceFAZolin Inj 1 GM in Sodium Chlor 0.9% Inj 100 ML IV.SIG SCH (05:03)
[2018-10-05 05:44] LABS: Hemoglobin 13.7 gm/dL (13.0-17.0)
--- NOTE | 2018-10-05 07:21 | P.PNOP ---
Subjective Interval history: The patient is out of bed in chair with minimal pain to the left hip. Patient is requesting to go home today with home health. Physical Exam Vital signs: Vital Signs 10/04/18 08:52 10/04/18 09:00 10/04/18 09:15 Temperature 98.6 F Pulse Rate 75 79 73 Respiratory Rate 14 13 14 Blood Pressure 138/76 145/85 H 113/58 L Pulse Oximetry 96 96 96 10/04/18 09:25 10/04/18 09:30 10/04/18 10:00 Temperature Pulse Rate 87 90 Respiratory Rate 15 20 Blood Pressure 114/61 130/64 Pulse Oximetry 96 97 97 10/04/18 10:31 10/04/18 11:00 10/04/18 12:00 Temperature 98.5 F Pulse Rate 86 80 86 Respiratory Rate 19 16 17 Blood Pressure 121/56 L 125/60 150/65 H Pulse Oximetry 97 97 97 10/04/18 13:00 10/04/18 13:26 10/04/18 13:40 Temperature 97.4 F L Pulse Rate 92 H 90 102 H Respiratory Rate 16 20 20 Blood Pressure 116/59 L 106/55 L 116/71 Pulse Oximetry 96 95 97 10/04/18 16:00 10/04/18 20:09 10/05/18 00:23 Temperature 97.7 F 97.9 F 97.8 F Pulse Rate 90 90 83 Respiratory Rate 20 20 17 Blood Pressure 121/71 143/67 H 119/60 Pulse Oximetry 97 98 97 10/05/18 03:22 Temperature 97.7 F Pulse Rate 67 Respiratory Rate 17 Blood Pressure 120/63 Pulse Oximetry 96 Intake & Output 10/04/18 10/05/18 10/05/18 18:59 06:59 18:59 Intake Total 1509.95 / 1509.95 820 / 820 Output Total 300 / 300 Balance 1209.95 / 1209.95 820 / 820 Weight 99.4 kg 98.2 kg Intake: IV 1209.95 / 1209.95 100 / 100 LR 1000 mL Inj 1,000 ML @ 30 700 / 700 mls/hr IV.SIG .Q24H [facility] Rx#: [id number] Cyklokapron Inj 995 MG In NS 109.95 / 109.95 Inj 100 ML @ 200 mls/hr IV.SIG ONCE [facility] Rx#:[id number] Vancomycin Inj 1,000 MG In NS 250 / 250 Inj 250 ML @ 250 mls/hr IV.SIG AIR TRAFFIC CONTROLLER [facility] Rx#:[id number] Ancef 2 GM Premix Inj 2 gm In 50 / 50 50 ml @ 100 mls/hr IV.SIG AIR TRAFFIC CONTROLLER [facility] Rx#:[id number] Ancef Inj 1 GM In NS Inj 100 ML 100 / 100 100 / 100 @ 200 mls/hr IV.SIG Q6H [facility] Rx #:[id number] Oral 300 / 300 720 / 720 Output: Estimated Blood Loss 300 / 300 Other: # Voids 3 # Bowel Movements 1 Narrative: The patient's dressing is clean, dry, and intact. EHL/TA/G are intact. 2+ pedal pulse. The patient's calf is soft and nontender. Sensation is intact to light touch distally. Results - Labs CBC & Chem 7: 10/05/18 04:33 Laboratory Results - last 24 hr 10/04/18 10/05/18 05:55 04:33 Hgb 13.7 Hct 41.0 Antibody Screen Negative - Imaging Impressions Hip X-Ray 10/04/18 00:00 CONCLUSION: Intact total hip prosthesis for technique. Hip X-Ray 10/04/18 08:25 CONCLUSION: Interval left hip arthroplasty. - Procedures Left total hip arthroplasty Assessment and Plan - Assessment and Plan POD #1: Left total hip arthroplasty 1. Weightbearing as tolerated on left lower extremity. 2. Aspirin 81 mg twice daily for DVT prophylaxis. 3. Ice as needed for swelling. 4. Stable per ortho for discharge to home health today. 5. The patient will follow up with Dr. Jeffery and/or KIM Foss as previously scheduled.
[2018-10-05] MEDS ORDERED: Dexamethasone Inj 20 MG/5 ML Vial IV.PUSH ONE (08:00)
[2018-10-05 08:33] VITALS: BP 132/72; PULSE 76; RESP 18; TEMP 98.2; O2SAT 98
[2018-10-05] MEDS: Senna/Docusate Sodium 8.6/50 MG Tablet PO SCH ×2 (09:07→09:48)
[2018-10-05] MEDS: Sod Chloride 0.9% Inj 1,000 ML IV.CONT SCH (09:48)
[2018-10-05] MEDS: Multivitamin/Minerals Therapeutic Tablet PO SCH (09:48)
--- NOTE | 2018-10-06 14:36 | P.DS ---
Date of admission: 10/04/18 05:13 Primary care physician: Destiney Deng MD Attending physician on discharge: Omid Jeffery Anticipated date of discharge: 10/05/18 Brief History from admission: The patient was admitted to the hospital for severe OA of the left hip to have a left TALON DS: Diagnosis - Discharge Diagnosis (1) Status post total hip replacement, left Status: Acute (2) Osteoarthritis of left hip Status: Acute DS: Summary Hospital Course: The patient was admitted to the hospital for severe osteoarthritis of the [left ] hip to have a [left] total hip arthroplasty. The patient's surgery went well with no complication. The patient is on a [regular] diet. The patient's DVT prophylaxis includes use of [ASA 81 mg BID]. The patient is weightbearing as tolerated. The patient was discharged [home with home health] and will follow up in the office with Dr. Jeffery and/or KIM Foss as previously scheduled. - Time Spent with Patient Total time spent providing and/or coordinating discharge services: Greater than 30 minutes - Quality: VTE Deep Vein Thrombosis/Pulmonary Embolism Present on Admission: No Exam Narrative: The patient's dressing is clean, dry, and intact. EHL/TA/G are intact. 2+ pedal pulse. The patient's calf is soft and nontender. Sensation is intact to light touch distally. Results Procedures completed during hospitalization: Left total hip arthroplasty - Impressions ITS Impressions Hip X-Ray 10/04/18 08:25 CONCLUSION: Interval left hip arthroplasty. Discharge Plan - Discharge Disposition Patient Disposition: W/Home Health Service - Discharge Condition Condition: Stable - Discharge Order Discharge Orders: Discharge Order (Routine); Ordered 10/04/18 Ordered By: Sam Sanchez - Discharge Details Anticipated Discharge Date: 10/05/18 - Physicians Team Primary Care Provider: Destiney Deng Attending Provider: Omid Jeffery - Rxs /Orders / Referrals /Forms Prescriptions: No Action No Known Home Medications Ambulatory Orders / Order Sets / DME: Adjustable Commode 3-in-1 (1 each) (Routine) Location: Determined by Patient Ordered By: Sam Sanchez Walker With Front Wheels (1 each) (Routine) Location: Determined by Patient Ordered By: Sam Sanchez Referrals: Omid Jeffery MD [Physician] - See Instructions (The patient will f/u as previously scheduled with Dr. Jeffery or Joaquin Sanchez APRN. ) Destiney Deng MD [Primary Care Provider] - See Instructions ( Please call the physician's office to book the appointment to be seen by Primary Care. ) - Discharge Instructions Patient Printed Instructions: How to Use an Incentive Spirometer (DC), Narcotic Safety (DC), Fall Prevention (DC), Total Hip Replacement (DC), Deep Vein Thrombosis Prevention (DC) Additional Instructions: WEIGHT BEARING TOLERATED FIRST DRESSING CHANGE WILL BE DONE IN OFFICE F/U WITH SCHEDULED. CALL OFFICE TO CONFIRM APPT TAKE MEDICATIONS PRESCRIBED - Post Discharge Care Plan Care Plan Goals: Discharge Care Plan Goals for Total Hip Replacement You had a hip replacement surgery. This means your natural hip was replaced with an artificial joint (prosthesis). You may be recovering at home or in a rehabilitation facility. Either way, you must take care of your new hip. Here are some goals to help you heal well. Directions to Meet your Goals: 1. Activity & Exercises: * Take pain medicine as directed by your doctor. * Dont drive until your doctor says its OK. And never drive while taking opioid pain medicine. * Wear the support stockings you were given in the hospital as directed by your surgeon. * Dont sit for more than 30 to 45 minutes at one time. * Dont lean forward while sitting. * Dont cross your legs. * Keep your feet flat on the floor. Dont turn your foot or leg inward. This stresses your hip joint. * Use an elevated toilet seat for 6 weeks after surgery. * Nap if you are tired, but dont stay in bed all day. * Sit on a firm cushion when you ride in a car and avoid sitting too low. Try not to bend your hip too much when getting in and out of the car. 2. Prevent Falls/Injury: * Follow your doctors orders regarding how much weight to put on the affected leg. * Dont bend at the hip when you bend over. Don't bend at the waist to put on socks and shoes. And avoid picking up items from the floor. * Use a cane, crutches, a walker, or handrails until your balance, flexibility, and strength improve. And remember to ask for help from others when you need it. * Free up your hands so that you can use them to keep balance. Use a mariana pack , apron, or pockets to carry things. * Arrange your household to keep the items you need handy. Keep everything else out of the way. * Remove items that may cause you to fall, such as throw rugs and electrical cords. * Use nonslip bath mats, grab bars, an elevated toilet seat, and a shower chair in your bathroom * Sit on a shower stool or chair when you shower to keep from falling. 3. Precautions: * Prevent infection. Any infection will need to be treated immediately. Call your doctor right away if you think you might have an infection. * Tell your dentist that you have an artificial joint and take antibiotics as prescribed before any dental work. * Tell all your healthcare providers about your artificial joint before any medical procedure. * Maintain a healthy weight. Get help to lose any extra pounds. Added body weight puts stress on the joints. 4. Incision Care: * Prevent infection by washing your hands often. If an infection occurs, it will need to be treated right away. * Call your doctor right away if you think you may have an infection. Symptoms include a fever or an incision that leaks white, green, or yellow fluid. * Don't soak your incision in water until your doctor says its OK. This means no hot tubs, bathtubs, or swimming pools. * Follow your doctor's instructions for changing the dressing. * Dont rub the incision, or apply creams or lotions to it. * If you notice any redness or drainage around the bandage site, contact your surgeon's office immediately. 5. Follow-Up: Do Not miss your follow-up appointment. Keep up with all your appointments and yearly check ups When to call your doctor: Call your doctor right away if you have: Hip pain gets worse Pain or swelling in your calf or leg not related to your incision Tenderness or redness in your calf Fever of 100.4F (38C) or higher, or as directed by your healthcare provider Shaking chills Swelling or redness at the incision site gets worse Fluid draining from the incision Call 911: Call 911 right away if you have: Chest pain Shortness of breath Any pain or tenderness in your calf
== END 2018-10-05 11:18 | disposition home health service (06) | DRG 470 ==
LOC: HSDI 05:13 → N06 13:26
PROVIDERS: ADMIT Orthopaedic Surgery; ATTEND Orthopaedic Surgery
CPT/HCPCS: 73502; 76000; 85014; 85018; 86850; 86900; 86901; 94150; 97110; 97116; 97162; C1776; C9290; J0690; J1100; J1170; J2175; J2250; J2270; J3010; J3370; J7030; J7050; J7120